=== PATIENT | male | born 2000 | race Caucasian/White ===

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

== ENCOUNTER 2020-01-03 15:13 | Emergency (ER) | payer OTHER ==
[~2020-01-03] VITALS: Ht 188 cm; Wt 86.4 kg
[2020-01-03 15:16] VITALS: BP 150/75
== END 2020-01-03 15:40 | disposition home or self-care (01) ==
LOC: EMS 15:13
DX: Z03.818 Encounter for observation for suspected exposure to other biological agents ruled out (principal); M79.10 Myalgia, unspecified site; J45.909 Unspecified asthma, uncomplicated; Z88.0 Allergy status to penicillin
CPT/HCPCS: 99283; U0003